=== PATIENT | female | born 1940 | race Caucasian/White ===

== ENCOUNTER 2016-10-21 10:00 | Observation (INO) | payer MEDICARE, OTHER ==
[~2016-10-21] VITALS: Ht 160 cm; Wt 64.2 kg
[2016-10-21 10:59] LABS: HEMOGLOBIN 14.2 gm/dl (12.3-15.3); RED BLOOD COUNT 4.33 M/UL (4.00-5.10); WHITE BLOOD COUNT 6.3 K/UL (4.5-11.0)
[2016-10-21 11:17] LABS: BUN/CREATININE RATIO 15 (0-10)
[2016-10-22] MEDS ORDERED: SINGULAIR10 MG PO (00:51)
[2016-10-22] MEDS ORDERED: PROLIA INJ60 MG/1 ML SC (00:52)
[2016-10-22] MEDS ORDERED: MOBIC15 MG PO (00:52)
[2016-10-22] MEDS ORDERED: PLAVIX 75 MG TA75 MG PO (00:53)
[2016-10-22] MEDS ORDERED: VITAMIN D31000 UNIT PO (00:53)
[2016-10-22] MEDS ORDERED: LEVOCETIRIZINE D5 MG PO (00:54)
[2016-10-22] MEDS ORDERED: ASPIRIN81 MG PO (00:55)
[2016-10-22] MEDS ORDERED: AZELASTINE137 MCG/0. (00:55)
[2016-10-22] MEDS ORDERED: LOSARTAN POTASS25 MG PO (00:55)
[2016-10-22] MEDS ORDERED: LIPITOR40 MG PO (00:56)
[2016-10-22] MEDS ORDERED: CALCIUM 600 +1 EA11 PO (00:56)
[2016-10-22] MEDS ORDERED: COMPLETE MULTI1 EAC2 PO (00:57)
[2016-10-22 06:22] LABS: HEMOGLOBIN 13.9 gm/dl (12.3-15.3); RED BLOOD COUNT 4.26 M/UL (4.00-5.10); WHITE BLOOD COUNT 6.6 K/UL (4.5-11.0)
[2016-10-22 07:07] LABS: BUN/CREATININE RATIO 20 (0-10)
[2016-10-22] MEDS ORDERED: PROTONIX40 MG PO (16:05)
[2016-10-22] MEDS ORDERED: PRILOSEC OTC20 MG PO (16:07)
== END 2016-10-22 16:45 | disposition home or self-care (01) ==
LOC: ER1 10:00 → M/S 14:00 → ZEROF 14:00 → M/S 23:00
PROVIDERS: Emergency Medicine; ADMIT Emergency Medicine
DX: R07.89 Other chest pain (principal); I25.10 Atherosclerotic heart disease of native coronary artery without angina pectoris; I10 Essential (primary) hypertension; E78.5 Hyperlipidemia, unspecified; I25.2 Old myocardial infarction; Z79.82 Long term (current) use of aspirin; Z79.02 Long term (current) use of antithrombotics/antiplatelets; Z79.899 Other long term (current) drug therapy; Z95.5 Presence of coronary angioplasty implant and graft; Z86.73 Personal history of transient ischemic attack (TIA), and cerebral infarction without residual deficits; Z90.710 Acquired absence of both cervix and uterus; Z90.89 Acquired absence of other organs
CPT/HCPCS: ECHO; 36415; 71010; 78452; 80053; 80061; 81001; 82550; 82553; 83036; 83735; 83874; 84439; 84443; 84484; 85025; 93005; 93017; 93306; 99285; A9502; G0378; J1650; J2785; J7030